=== PATIENT | male | born 1955 | race Caucasian/White ===

== ENCOUNTER 2022-09-25 10:50 | Outpatient (CLI) | payer OTHER | END 2022-09-25 10:54 | disposition home or self-care (01) | LOC: LAB 10:50 | PROVIDERS: ATTEND Urology | DX: R97.20 Elevated prostate specific antigen [PSA] (principal) ==

== ENCOUNTER 2022-09-28 07:11 | Outpatient (CLI) | payer OTHER | END 2022-09-28 07:14 | disposition home or self-care (01) | LOC: SONOGRAMA 07:11 | PROVIDERS: ATTEND Urology | DX: D29.1 Benign neoplasm of prostate (principal); R97.20 Elevated prostate specific antigen [PSA] ==